=== PATIENT | female | born 1980 | race Caucasian/White ===

== ENCOUNTER 2016-08-22 08:09 | Emergency (ER) | payer OTHER ==
[~2016-08-22] VITALS: Ht 162.6 cm; Wt 61.2 kg
[~2016-08-22 08:09] MED LIST: CELEXA 20 MG TA20 M1 PO; CLONAZEPAM; DOXYCYCLINE 10100 MG PO; FLEXERIL PO; NORCO 5-325 TA1 EACH PO; TRAMADOL 50 MG50 MG PO; TYLENOL325 MG; VIBRAMYCIN 100100 MG PO
[2016-08-22] MEDS ORDERED: AMOXICILLIN500 M1 PO (08:44)
[2016-08-22 09:26] VITALS: BP 112/87
== END 2016-08-22 09:27 | disposition home or self-care (01) ==
LOC: ER 08:09
DX: J02.0 Streptococcal pharyngitis (principal)